=== PATIENT | female | born 1950 | race Caucasian/White ===

== ENCOUNTER 2016-11-08 18:41 | Emergency (ER) | payer BC ==
[~2016-11-08] VITALS: Ht 167.6 cm; Wt 89.4 kg
[~2016-11-08 18:41] MED LIST: ASPCH81 PO; BNC20 PO; CALCIUM 600+D+D OR; FLUO20CA35 PO; MTR600X PO; MULT-506 PO; SIMV20TA2 PO
[2016-11-08 18:49] VITALS: TEMP 37.1; Ht 167.6 cm; Wt 89.4 kg
[2016-11-08] MEDS ORDERED: LOSA1TAB38 PO (19:00)
[2016-11-08] MEDS ORDERED: MISCCAP80 PO (19:01)
[2016-11-08] MEDS ORDERED: ACETAMINOPHEN 325 MG TAB PO STA (19:15)
[2016-11-08] MEDS ORDERED: SODIUM CHLORIDE 0.9% 500ML 500 ML IV STA (19:15)
[2016-11-08] MEDS ORDERED: IBUPROFEN 200 MG TAB PO STA (19:15)
[2016-11-08 19:50] LABS: HEMATOCRIT 39.2 % (37-47); MEAN CELL VOLUME 88.3 fL (80-100); MEAN CORPUSCULAR HEMOGLOBIN 29.7 pg (25-34); MEAN CORPUSCULAR HGB CONC 33.7 g/dl (32-36); PLATELET COUNT 197 K/uL (130-400); RED BLOOD COUNT 4.44 M/uL (4.2-5.4); WHITE BLOOD COUNT 11.31 K/uL (4.8-10.8)
[2016-11-08 19:59] LABS: INR 1.1 (0.9-1.1); PARTIAL THROMBOPLASTIN RATIO 1.1; PROTHROMBIN TIME (PATIENT) 11.9 SECONDS (9.0-12.0)
[2016-11-08 20:07] LABS: BUN/CREATININE RATIO 24.2 (10-20); CALCIUM 8.4 mg/dl (8.5-10.1); CREATININE 0.76 mg/dl (0.60-1.20); POTASSIUM 3.6 mmol/L (3.5-5.1)
[2016-11-08 20:09] LABS: BASO % 0.1 %; BASO ABS # 0.01 K/uL (0-0.2); COMPLETE YES; EOS % 0.1 %; IG% 0.2 %; LYMPH % 4.1 %; LYMPH ABS # 0.46 K/uL (1.2-3.4); MONO % 1.4 %; NEUT % 94.1 %
--- NOTE | 2016-11-08 20:38 | DIAGNOSTIC IMAGING REPORT ---
CHEST 2 VIEWS ROUTINE CLINICAL HISTORY: Fever. Nausea. Evaluate for pneumonia. COMPARISON STUDY: Chest radiograph February 16, 2015 and FINDINGS: Lung volumes are at the lower limits of normal. Mild left basilar opacity is suggestive of atelectasis. There is no evidence of pneumonia. Pulmonary vascularity is normal. Cardiac size is at upper limits of normal. IMPRESSION: No acute cardiopulmonary findings. Electronically signed by: Pino Lerner M.D. 11/08/2016 8:37 PM Dictated Date/Time: 11/08/2016 8:36 PM
[2016-11-08 21:20] LABS: URINE APPEARANCE CLEAR (CLEAR); URINE BILIRUBIN NEG (NEG); URINE COLOR YELLOW; URINE NITRITE NEG (NEG); URINE SPECIFIC GRAVITY 1.022 (1.000-1.030); UROBILINOGEN NEG (NEG)
[2016-11-08 21:22] LABS: MANUAL MICROSCOPIC REQUIRED? NO; REVIEW REQ? NO
[2016-11-08 21:45] VITALS: BP 127/64; PULSE 69; O2SAT 97
[2016-11-08 22:52] LABS: LYME DISEASE AB IGG NEG (NEG)
[2016-11-08 22:54] LABS: LYME DISEASE AB IGM NEG (NEG)
--- NOTE | 2016-11-09 00:19 | EMERGENCY ROOM VISIT NOTE ---
History Report prepared by Karen: Olivia Vora Under the Supervision of: Dr. Rayo Rosales M.D. First contact with patient: 19:07 Chief Complaint: FEVER Stated Complaint: 101 FEVER,NAUSEA,HEADACHE History of Present Illness The patient is a 66 year old female who presents to the Emergency Room with complaints of constant fever of 101 beginning this morning. She states that last night she felt good. She typically eats very healthy since she is on [employer]. Last night she had a dinner alliance party and ate not how she typically does. The patient then woke up this morning and did not feel good. She went to [facility] and the smell of food made her nauseous. When the patient got home she tried to sleep but was unable to. She experienced chills and hot flashes but denies any diaphoresis. The patient is also experiencing fatigue and a headache in the front of her head that she rates as 3/10 in severity. She has had normal bowel movements today and has not taken medication. The patient denies neck pain or stiffness, vomiting, cough, congestion, abdominal pain, diarrhea, urinary symptoms, rash or recent foreign travels. She did get her flu shot this year. Source of History: patient Onset: this morning Position: other (global) Symptom Intensity: 101 Quality: other (fever) Timing: constant Associated Symptoms: + chills, + fatigue, + fevers, + headache, + nausea, No diaphoresis, No diarrhea, No neck pain, No urinary symptoms Review of Systems See HPI for pertinent positives & negatives. A total of 10 systems reviewed and were otherwise negative. Past Medical & Surgical Medical Problems: (1) High cholesterol (2) Hypertension Family History Diabetes mellitus Hypertension Social History Smoking Status: Former Smoker Alcohol Use: none Drug Use: none Marital Status: in relationship Housing Status: lives with significant other Current/Historical Medications Scheduled , 2 TABLETS OR DAILY Aspirin (Aspirin Tab-Chewable *), 1 TAB PO DAILY Fluoxetine (Prozac), 20 MG PO DAILY Losartan Potassium (Cozaar), 100 MG PO QPM Multivitamin (Multivitamin), 1 TAB PO DAILY Probiotic Product (Probiotic), 1 CAP PO QAM Simvastatin (Zocor), 20 MG PO QPM Scheduled PRN Ibuprofen (Ibuprofen), 600 MG PO Q6H PRN for Pain Allergies Coded Allergies: No Known Allergies (Unverified , 11/08/16) Physical Exam Vital Signs Date Time Temp Pulse Resp B/P Pulse Ox O2 Delivery O2 Flow Rate FiO2 11/08/16 21:45 69 16 127/64 97 11/08/16 21:00 84 16 133/95 92 11/08/16 20:00 61 16 112/97 98 Room Air 11/08/16 19:13 98 11/08/16 19:07 91 18 146/83 95 Room Air 11/08/16 18:49 37.1 105 20 147/84 97 Room Air Physical Exam Constitutional: Vital signs reviewed. Eyes: Pupils are equal round reactive to light. Conjunctiva are noninjected. ENT: Pharynx is clear without erythema or exudate. Mucous membranes are moist. Neck supple without meningeal signs. Respiratory: Clear to auscultation bilaterally. Breath sounds are equal bilaterally. Cardiovascular: Regular rate and rhythm. No rubs or gallops. GI: Soft, nondistended and nontender. Bowel sounds are present. Musculoskeletal: No peripheral edema. No CVA tenderness. Integumentary: No cyanosis. Neurological: The patient is awake and alert. No focal deficits. Psychiatric: Normal affect. Medical Decision & Procedures ER Provider Diagnostic Interpretation: X-ray results as stated below per interpretation by me and the radiologist: CHEST 2 VIEWS ROUTINE CLINICAL HISTORY: Fever. Nausea. Evaluate for pneumonia. COMPARISON STUDY: Chest radiograph February 16, 2015 and FINDINGS: Lung volumes are at the lower limits of normal. Mild left basilar opacity is suggestive of atelectasis. There is no evidence of pneumonia. Pulmonary vascularity is normal. Cardiac size is at upper limits of normal. IMPRESSION: No acute cardiopulmonary findings. Electronically signed by: Pino Lerner M.D. 11/08/2016 8:37 PM Dictated Date/Time: 11/08/2016 8:36 PM Laboratory Results 11/08/16 19:37 Red Blood Count 4.44, Mean Corpuscular Volume 88.3, Mean Corpuscular Hemoglobin 29.7, Mean Corpuscular Hemoglobin Concent 33.7, Mean Platelet Volume 11.0, Neutrophils (%) (Auto) 94.1, Lymphocytes (%) (Auto) 4.1, Monocytes (%) (Auto) 1.4, Eosinophils (%) (Auto) 0.1, Basophils (%) (Auto) 0.1, Neutrophils # (Auto) 10.65, Lymphocytes # (Auto) 0.46, Monocytes # (Auto) 0.16, Eosinophils # (Auto) 0.01, Basophils # (Auto) 0.01 11/08/16 19:37 Test 11/08/16 19:25 11/08/16 19:37 11/08/16 21:08 Influenza Type A Antigen Neg for Influ A (NEG) Influenza Type B Antigen Neg for Influ B (NEG) White Blood Count 11.31 K/uL (4.8-10.8) Red Blood Count 4.44 M/uL (4.2-5.4) Hemoglobin 13.2 g/dL (12.0-16.0) Hematocrit 39.2 % (37-47) Mean Corpuscular Volume 88.3 fL (80-100) Mean Corpuscular Hemoglobin 29.7 pg (25-34) Mean Corpuscular Hemoglobin Concent 33.7 g/dl (32-36) Platelet Count 197 K/uL (130-400) Mean Platelet Volume 11.0 fL (7.4-10.4) Neutrophils (%) (Auto) 94.1 % Lymphocytes (%) (Auto) 4.1 % Monocytes (%) (Auto) 1.4 % Eosinophils (%) (Auto) 0.1 % Basophils (%) (Auto) 0.1 % Neutrophils # (Auto) 10.65 K/uL (1.4-6.5) Lymphocytes # (Auto) 0.46 K/uL (1.2-3.4) Monocytes # (Auto) 0.16 K/uL (0.11-0.59) Eosinophils # (Auto) 0.01 K/uL (0-0.5) Basophils # (Auto) 0.01 K/uL (0-0.2) RDW Standard Deviation 45.0 fL (36.4-46.3) RDW Coefficient of Variation 13.9 % (11.5-14.5) Immature Granulocyte % (Auto) 0.2 % Immature Granulocyte # (Auto) 0.02 K/uL (0.00-0.02) Prothrombin Time 11.9 SECONDS (9.0-12.0) Prothromb Time International Ratio 1.1 (0.9-1.1) Activated Partial Thromboplast Time 28.8 SECONDS (21.0-31.0) Partial Thromboplastin Ratio 1.1 Anion Gap 10.0 mmol/L (3-11) Est Creatinine Clear Calc Drug Dose 84.2 ml/min Estimated GFR () 96.1 Estimated GFR (Non- 82.9 BUN/Creatinine Ratio 24.2 (10-20) Calcium Level 8.4 mg/dl (8.5-10.1) Lyme Disease IgG Antibody NEG (NEG) Lyme Disease IgM Antibody NEG (NEG) Urine Color YELLOW Urine Appearance CLEAR (CLEAR) Urine pH 7.0 (4.5-7.5) Urine Specific [place] 1.022 (1.000-1.030) Urine Protein NEG (NEG) Urine Glucose (UA) NEG (NEG) Urine Ketones TRACE (NEG) Urine Occult Blood NEG (NEG) Urine Nitrite NEG (NEG) Urine Bilirubin NEG (NEG) Urine Urobilinogen NEG (NEG) Urine Leukocyte Esterase NEG (NEG) Laboratory results as reviewed by me. Medications Administered Medications (Trade) Dose Ordered Sig/Julieta Route Start Time Stop Time Status Last Admin Dose Admin Sodium Chloride (Nss 500ml) 500 ml @ 999 mls/hr Q31M STAT IV 11/08/16 19:15 11/08/16 19:45 DC 11/08/16 19:37 999 MLS/HR Ibuprofen (Advil Tab) 400 mg NOW STAT PO 11/08/16 19:15 11/08/16 19:17 DC 11/08/16 19:37 400 MG Acetaminophen (Tylenol Tab) 650 mg NOW STAT PO 11/08/16 19:15 11/08/16 19:17 DC 11/08/16 19:37 650 MG ED Course 190: The patient was evaluated in room C5. A complete history and physical exam was performed. 1914: Tylenol Tab 650 mg PO, Advil Tab 400 mg PO, Sodium Chloride 500 ml @ 999 mls/hr IV. 2129: The patient is feeling better and her headache has mostly subsided. 2144: Upon reevaluation, the patient appeared to have improvement of her symptoms. I discussed tonight's findings with her. She verbalized agreement of the treatment plan. She was discharged home. Medical Decision This is a 66-year-old female presents with a fever. Differential diagnosis includes UTI, pneumonia, influenza, viral syndrome, bacteremia. I did perform a limited focused review of portions of the patient's old chart on the electronic medical record. The patient has had no recent pertinent visits to this hospital. I did evaluate the patient as noted above. She is well appearing on examination. She is presenting with a fever and a mild frontal headache. She does not have any meningeal signs. IV access was established. I did treat her with normal saline IV. She was also given Tylenol and Motrin. I did order and personally review the patient's urinalysis and chest x-ray as described above. I did order and review the patient's blood work as noted in the electronic medical record. Her white blood cell count is slightly elevated. Lyme testing is negative. Influenza testing is negative. I did reassess the patient. She is feeling better and her headache is mostly subsided. I did discuss the test results with the patient. The cause of her fever is unclear at this time but she is very well-appearing and does not require hospitalization. She was advised to follow closely with her doctor and was given return instructions. She was discharged in good condition. Impression Primary Impression: Fever of unknown origin Scribe Attestation The scribe's documentation has been prepared under my direct and personally reviewed by me in its entirety. I confirm that the note above accurately reflects all work, treatment, procedures, and medical decision making performed by me. Departure Information Dispostion Home / Self-Care Referrals Moris Landa D.O.Int.Med. (PCP) Forms HOME CARE DOCUMENTATION FORM, IMPORTANT VISIT INFORMATION Patient Instructions ED Fever Unconf Cause, My [facility] Additional Instructions You have been examined and treated today on an emergency basis only. This is not a substitute for, or an effort to provide, complete comprehensive medical care. It is impossible to recognize and treat all injuries or illnesses in a single emergency department visit. It is therefore important that you follow up closely with your physician. Call as soon as possible for an appointment. Return for worsening symptoms or if you develop joint pains, rash, chest pain, difficulty breathing, abdominal pain, vomiting, or any other concerning symptoms.
== END 2016-11-08 21:46 | disposition home or self-care (01) ==
LOC: C.EDB 18:42 → C.EDC 21:46
DX: R50.9 Fever, unspecified (principal); I10 Essential (primary) hypertension; E78.00 Pure hypercholesterolemia, unspecified; Z79.82 Long term (current) use of aspirin; Z87.891 Personal history of nicotine dependence

== ENCOUNTER → 2017-05-06 | Outpatient (CLI) | payer BC ==
[~2017-05-06] MED LIST changes: -BNC20 PO; +LOSA1TAB38 PO; +MISCCAP80 PO
[2017-05-06 11:13] LABS: ALT/SGPT 25 U/L (12-78); BLOOD UREA NITROGEN 22 mg/dl (7-18); BUN/CREATININE RATIO 26.9 (10-20); CALCIUM 8.8 mg/dl (8.5-10.1); CARBON DIOXIDE 29 mmol/L (21-32); CHLORIDE 108 mmol/L (98-107); CHOLESTEROL 185 mg/dl (0-200); CREATININE 0.83 mg/dl (0.60-1.20); GLUCOSE 80 mg/dl (70-99); POTASSIUM 4.4 mmol/L (3.5-5.1); SODIUM 141 mmol/L (136-145); TRIGLYCERIDES 114 mg/dl (0-150); VERY LOW DENSITY LIPOPROT CALC 23 mg/dl
[2017-05-06 11:16] LABS: ALKALINE PHOSPHATASE 85 U/L (45-117); AST/SGOT 25 U/L (15-37); CHOLESTEROL/HDL RATIO 6.4; HDL CHOLESTEROL 29 mg/dl; LDL CHOLESTEROL CALCULATED 133 mg/dl
== END | disposition home or self-care (01) ==
LOC: C.LABBC 06:58
PROVIDERS: ATTEND Physician Assistant
DX: E78.00 Pure hypercholesterolemia, unspecified (principal)

== ENCOUNTER → 2017-07-09 | Outpatient (CLI) | payer BC ==
--- NOTE | 2017-07-09 15:58 | MAMMOGRAPHY REPORT ---
BILATERAL DIGITAL SCREENING MAMMOGRAM TOMOSYNTHESIS WITH CAD: 07/09/2017 CLINICAL HISTORY: Routine screening. TECHNIQUE: Breast tomosynthesis in addition to standard 2D mammography was performed. Current study was also evaluated with a Computer Aided Detection (CAD) system. COMPARISON: Comparison is made to exams dated: 07/06/2015 mammogram, 07/08/2016 mammogram, 07/05/2014 m ammogram, 07/04/2013 mammogram, 07/01/2012 mammogram, and 06/30/2011 mammogram - [facility] enter. BREAST COMPOSITION: There are scattered areas of fibroglandular density in both breasts. FINDINGS: No suspicious masses, calcifications, or areas of architectural distortion are noted in ei ther breast. There has been no significant interval change compared to prior exams. Scattered bilate ral benign-appearing calcifications are again noted. Benign intramammary lymph node in the left uppe r outer quadrant is stable. IMPRESSION: ACR BI-RADS CATEGORY 2: BENIGN There is no mammographic evidence of malignancy. A 1 year screening mammogram is recommended. The pa tient will receive written notification of the results. Approximately 10% of breast cancers are not detected with mammography. A negative mammographic report should not delay biopsy if a clinically suggestive mass is present. Maddie Sunshine M.D. /:07/09/2017 15:46:38 Drive In Teller: Jesenia HERNANDEZ(Linda)(), [facility] letter sent: Normal 1/2 BI-RADS Code: ACR BI-RADS Category 2: Benign
== END | disposition home or self-care (01) ==
LOC: C.MAMM 13:21
PROVIDERS: ATTEND Obstetrics & Gynecology
DX: Z12.31 Encounter for screening mammogram for malignant neoplasm of breast (principal)

== ENCOUNTER → 2017-12-01 | Outpatient (CLI) | payer BC | END | disposition home or self-care (01) | LOC: C.LAB1850 11:20 | PROVIDERS: ATTEND Nurse Practitioner Adult Health | DX: R53.83 Other fatigue (principal) ==

== ENCOUNTER → 2017-12-09 | Outpatient (CLI) | payer BC ==
[2017-12-09 12:28] LABS: BLOOD UREA NITROGEN 24 mg/dl (7-18); CALCIUM 8.9 mg/dl (8.5-10.1); CARBON DIOXIDE 29 mmol/L (21-32); CREATININE 0.82 mg/dl (0.60-1.20); GLUCOSE 84 mg/dl (70-99); SODIUM 139 mmol/L (136-145)
== END | disposition home or self-care (01) ==
LOC: C.LAB1850 09:43
PROVIDERS: ATTEND Nurse Practitioner Adult Health
DX: I10 Essential (primary) hypertension (principal)

== ENCOUNTER 2024-02-08 06:16 | Observation (INO) ==
--- NOTE | 2024-01-06 12:50 | PAT Medication Instructions ---
Medication Instructions Date of Service January 06, 2024 Home Medications Medication Instructions Recorded losartan 100 mg tablet 100 mg PO QAM #90 tabs 06/17/23 simvastatin 40 mg tablet 40 mg PO PM #90 tabs 08/04/23 nystatin-triamcinolone 100,000 1 applic topical TID PRN Rash #1 g 11/03/23 unit/gram-0.1 % topical ointment pantoprazole 40 mg tablet,delayed 40 mg PO BID #180 tabs 01/05/24 release fluoxetine 20 mg capsule (Prozac) 20 mg PO QAM multivitamin (Daily Multi-Vitamin tablet) 1 tab PO QAM lactobacillus combination no.4 3 billion cell capsule (Probiotic) 3,000 mmu cells PO QAM losartan 100 mg tablet 100 mg PO QAM psyllium husk 3.4 gram/5.4 gram oral powder (Metamucil) 1 tbsp PO QAM simvastatin 40 mg tablet 40 mg PO PM nystatin-triamcinolone 100,000 unit/gram-0.1 % topical ointment 1 applic topical TID PRN Rash metformin 500 mg tablet 500 mg PO QAM Magnesium Zinc Vitamin D3 2 cap PO QAM glucosamine sulf dipot chlr,msm,chond 550 mg-C 30 mg-pablo 1 mg capsule (Glucosamine Chondroitin) 2 cap PO QAM pantoprazole 40 mg tablet,delayed release 40 mg PO BID STOP taking 2 weeks before surgery (or as soon as possible if surgery is within 2 weeks) glucosamine sulf dipot chlr,msm,chond 550 mg-C 30 mg-pablo 1 mg capsule (Glucosamine Chondroitin) 2 cap PO QAM STOP taking 24 hours before surgery nystatin-triamcinolone 100,000 unit/gram-0.1 % topical ointment 1 applic topical TID PRN Rash DO NOT take the morning of surgery multivitamin (Daily Multi-Vitamin tablet) 1 tab PO QAM lactobacillus combination no.4 3 billion cell capsule (Probiotic) 3,000 mmu cells PO QAM losartan 100 mg tablet 100 mg PO QAM psyllium husk 3.4 gram/5.4 gram oral powder (Metamucil) 1 tbsp PO QAM metformin 500 mg tablet 500 mg PO QAM Magnesium Zinc Vitamin D3 2 cap PO QAM Take morning of surgery With a small sip of water, OTHERWISE NOTHING TO EAT OR DRINK AFTER MIDNIGHT: fluoxetine 20 mg capsule (Prozac) 20 mg PO QAM pantoprazole 40 mg tablet,delayed release 40 mg PO BID Take evening before surgery simvastatin 40 mg tablet 40 mg PO PM pantoprazole 40 mg tablet,delayed release 40 mg PO BID Other Notes If you have any questions please call us at [phone] or [phone] or [phone] or [phone]
--- NOTE | 2024-01-13 11:59 | Anesthesiology Consultation ---
Date of Service January 13, 2024 Assessment & Plan (1) Encounter for pre-operative examination: - check BSG am DOS. - Outpatient joint assessment: Patient is currently scheduled for inpatient pathway. If re-evaluated and patient/surgeon requests outpatient pathway, patient is acceptable candidate for outpatient joint program from anesthesia standpoint pending surgeon's office assessment of pt motivation/support/completion of same day joint program preop requirements. Chart Review Chart Review: Acceptable Risk for Surgery and Patient seen in Pre Admission Testing Teaching & Discussion Pre-Anesthesia Teaching/Discussion Notes: Instructed NPO after midnight before surgery, except medications with 15 cc of water. Medication instructions provided according to the PAT guidelines. History Surgery Operation Date: 02/08/24 08:15 Proposed Procedures p Left Total Knee Arthroplasty - Micky Smith DO Height/Weight Height: 5 ft 5 in Weight: 83.4 kg Allergies Allergy/AdvReac Type Severity Reaction Status Date / Time No Known Drug Allergies Allergy Verified 12/29/23 11:04 Medications Home Medications Medication Instructions Recorded Confirmed Last Taken fluoxetine 20 mg capsule (Prozac) 20 mg PO QAM 02/07/19 12/29/23 01/13/23 multivitamin (Daily Multi-Vitamin 1 tab PO QAM 11/30/20 12/29/23 01/13/23 tablet) lactobacillus combination no.4 3 3,000 mmu cells PO QAM 12/16/21 12/29/23 01/13/23 billion cell capsule (Probiotic) losartan 100 mg tablet 100 mg PO QAM #90 tabs 06/17/23 12/29/23 Unknown psyllium husk 3.4 gram/5.4 gram 1 tbsp PO QAM 07/02/23 12/29/23 Unknown oral powder (Metamucil) simvastatin 40 mg tablet 40 mg PO PM #90 tabs 08/04/23 12/29/23 Unknown nystatin-triamcinolone 100,000 1 applic topical TID PRN Rash #1 g 11/03/23 12/29/23 Unknown unit/gram-0.1 % topical ointment metformin 500 mg tablet 500 mg PO QAM 12/04/23 12/29/23 Unknown Magnesium Zinc Vitamin D3 2 cap PO QAM 12/29/23 12/29/23 Unknown glucosamine sulf dipot 2 cap PO QAM 12/29/23 12/29/23 Unknown chlr,msm,chond 550 mg-C 30 mg-pablo 1 mg capsule (Glucosamine Chondroitin) pantoprazole 40 mg tablet,delayed 40 mg PO BID #180 tabs 01/05/24 Unknown release Past Medical History Medical History Chronic back pain mild Depression with anxiety GERD (gastroesophageal reflux disease) controlled, stable per pt Hearing deficit b/l campuzano High cholesterol History of COVID-19 (~2020) hospital test, resolved Hx of renal calculi passed on own Hypertension controlled, stable per pt Osteoarthritis of knee hx cortisol injections both knees Post-nasal drip Prediabetes on metformin TMJ syndrome clicks occasional with yawn, no locking Patient denies h/o stroke, seizures, heart attack, heart failure, blood marilyn ts/DVTs or blood transfusions. Exercise / Class Metabolic Activity III < 4 Walking/Shop/Light housework (denies chest discomfort or shortness of breath with usual activities) Past Family History Family History Mother Stroke Diabetes Hypertension FH: deafness or hearing loss Hearing loss Unknown FH: deafness or hearing loss Hypertension Other No family history of adverse response to anesthesia No family history of bleeding disorder Denies family history of Colon cancer Ovarian cancer Prostate cancer Myocardial infarction Breast cancer Past Surgical History Surgical History History of colonoscopy History of lateral meniscus repair of left knee History of selective injection of anesthetic agent around lumbar nerve root LESI History of tonsillectomy and adenoidectomy Hx of bilateral cataract extraction Past Anesthesia History No Hx of Anesthesia Complications and No Family Hx of Anesthesia Complications History of PONV No Hx of PONV and No Hx of Motion Sickness Social History Smoking Status: Former smoker Smoking cigarettes per day: 1 PPD Do You Dip or Chew Tobacco: No Smoking End Date: Quit 50 years ago Hx Alcohol Use: No Hx Substance Use: No substance use type: does not use Review of Systems Patient denies chest pain, shortness of breath, dyspnea on exertion, snoring, witnessed apneas, fever, chills, change in chronic cough associated with postnasal drip per pt, wheezing, or palpitations. Physical Exam Vital Signs Vitals BP 118/81 P 73 TEMP 98.3 SP02 96% on RA RESP 18 Physical Patient resting comfortably in chair in no acute distress, alert and oriented, responding appropriately throughout visit Full cervical extension range of motion without pain TMD 3.5 finger breadths Mallampati Score 3 Dentition: several caps/crowns and several implants, bridges; denies chipped or loose teeth Lungs: normal respiratory effort. Good air movement, clear throughout to auscultation, no adventitious breath sounds Cardiac: regular rate and rhythm, no murmurs noted Carotid arteries: negative bruit bilat Lab Results Anesthesia Preop Results Results Anesthesia Widget: WBC 7.94 K/ul (4.8-10.8) 01/13/24 Hgb 12.4 g/dl (12.0-16.0) 01/13/24 Hct 38.1 % (37.0-47.0) 01/13/24 Plt 261 K/uL (130-400) 01/13/24 Na 137 mmol/L (136-145) 01/13/24 K 4.7 mmol/L (3.5-5.1) 01/13/24 Cl 105 mmol/L (98-107) 01/13/24 CO2 27 mmol/L (21-32) 01/13/24 BUN 25 mg/dl (6-23) H 01/13/24 Creat 0.63 mg/dl (0.6-1.2) 01/13/24 Glucose Level 97 mg/dl (70-99(Fasting)) 01/13/24 PT 11.6 Seconds (9.0-12.0) 01/13/24 PTT 29 Seconds (21-31) 01/13/24 INR 1.1 (0.9-1.1) 01/13/24 HA1c 5.8 % (4.5-5.6) H 01/13/24 Blood Type B Negative 01/13/24 Antibody Screen NEGATIVE 01/13/24 Testing Electrocardiogram Date: 01/14/24 NSR with sinus arrhythmia, rate 64 bpm Left anterior fascicular block Minimal voltage criteria for LVH, may be normal variant Chest X-Ray Date: 09/14/23 No acute cardiopulmonary findings.
[~2024-02-08 06:16] MED LIST changes: -ASPCH81 PO; +BUPIVACAINE 0.25% PF 30 ML VIAL ONE; +BUPIVACAINE 0.5 % 5 MG/1 ML PF 10ML VIAL ONE; -CALCIUM 600+D+D OR; -FLUO20CA35 PO; -LOSA1TAB38 PO; -MISCCAP80 PO; -MTR600X PO; -MULT-506 PO; -SIMV20TA2 PO
--- NOTE | 2024-02-08 06:36 | History & Physical Bridge Note ---
Date of Service February 08, 2024 History & Physical Bridge Note I have examined the patient, reviewed the History & Physical and in the interval since the performance of the History & Physical I have noted the following changes of clinical significance: no changes noted
[2024-02-08] MEDS ORDERED: PHENYLEPHRINE 100MCG/ML 10ML SYR IV ONE (06:44)
[2024-02-08] MEDS ORDERED: MIDAZOLAM HCL 1 MG/ML 2ML VIAL ONE (06:44)
[2024-02-08] MEDS ORDERED: PROPOFOL IV EMULSION 10 MG/ML 20 ML VIAL IV ONE ×2 (06:44→08:37)
[2024-02-08] MEDS ORDERED: ONDANSETRON INJ 2 MG/ML 2 ML VIAL ONE (06:44)
[2024-02-08] MEDS: LR 500ML BOLUS, THEN 15ML/HR IV SCH (07:11)
[2024-02-08] MEDS: FAMOTIDINE 20 MG TAB PO SCH (07:13)
[2024-02-08] MEDS: ACETAMINOPHEN 500 MG TAB PO SCH ×2 (07:13→14:15)
[2024-02-08] MEDS: GABAPENTIN 300 MG CAP PO SCH (07:14)
[2024-02-08] MEDS: dexAMETHasone**PF** 10 MG/ML VIAL IV SCH (07:14)
[2024-02-08] MEDS: LR 60ML/HR IV SCH (07:27)
[2024-02-08] MEDS: TRANEXAMIC ACID 1,000 MG **IV Pre-op IV SCH (07:57)
[2024-02-08] MEDS: ceFAZolin 2000MG 2,000 MG/15 ML SYR IV SCH (08:04)
[2024-02-08] MEDS ORDERED: ePHEDrine sulfate 50 MG/ML AMP IV PRN (08:27)
[2024-02-08] MEDS ORDERED: PROMETHAZINE HCL 6.25 MG in SODIUM CHLORIDE 0.9% 50 ML IV PRN (08:27)
[2024-02-08] MEDS ORDERED: fentaNYL citrate PF 100 MCG/2 ML VIAL IV PRN (08:27)
[2024-02-08] MEDS ORDERED: ATROPINE SULFATE 0.1 MG/ML 10ML SYR IV PRN (08:27)
[2024-02-08] MEDS ORDERED: ONDANSETRON INJ 2 MG/ML 2 ML VIAL IV PRN ×2 (08:27→11:05)
[2024-02-08] MEDS: ORTHO JOINT ANESTHETIC ONE (08:46)
[2024-02-08] MEDS: ROPIV 0.5% 246mg, Ketorolac 30mg, EPINEPHrine 0.5mg in NSS INFIL SCH (08:46)
[2024-02-08] MEDS: TRANEXAMIC ACID 1,000 MG **IV Intra-op IV SCH (09:00)
--- NOTE | 2024-02-08 09:10 | Operative Report ---
PG Post Operative Report Pre & Post Diagnosis Operation Date: 02/08/24 08:15 Pre-Op Diagnosis: Degenerative Joint Disease Left Knee Post-Op Diagnosis: Degenerative Joint Disease Left Knee I identified the patient and participated in the time-out.: Yes Procedure Operation Date: 02/08/24 08:15 Actual Procedures p Left Total Knee Arthroplasty, Cemented(Left) - Micky Smith DO Surgeon Micky Smith DO Cut Off Saw Set Up Operator John Paul Lynn PA-C Estimated Blood Loss 30 Findings Consistent with Post-Op Diagnosis Specimens Left femoral and tibial bone Description of Procedure Implants used: I used a Marisol Persona total knee arthroplasty system with a size 6 narrow PS femur, D tibia, 28 oval patella, and a size 14 CPS polyethylene bearing. All components were cemented in place with Biomet cement. Sakina arrived [facility] for the above procedure. She was seen in the preoperative holding area and the operative extremity was identified and signed. She was given a preoperative antibiotic, TXA, a spinal anesthetic and an adductor nerve block. She was taken back to the operating room and laid on the table in supine position. She was given basic sedation. The operative knee was then prepped and draped in sterile fashion. A timeout was done, and the patient and the operative extremity was properly identified. A midline incision was made directly over the patella. Dissection was taken down to the extensor mechanism. A midvastus arthrotomy was used. The medial retinaculum was released and the fat pad was mostly excised. The knee was flexed and the ACL, PCL, and meniscus were removed. A drill was sent down the center of the femoral canal followed by an intramedullary russell. Off that russell a distal femoral cutting block was placed. 9 mm was resected off the distal femur at 5 of valgus. A posterior referencing AP sizing guide was then placed on the distal femur. The femur measured to be a size 6. 2 drill holes were placed in 3 of external rotation. A 4-in-1 cutting block was then impacted into place. Anterior, posterior, and chamfer cuts were then made. The proximal tibia was then exposed. An external tibial alignment guide was placed. A tibial cut guide was then anchored in place and the proximal tibia was then resected. The posterior aspect of the knee was then opened up and any additional meniscus fragments and osteophytes were removed. The tibia measured to be a size D. The tibial plate was then placed in the appropriate rotation and the tibia was drilled and punched. Trial components were then placed. I used a size 14 CPS polyethylene insert. The knee was brought through a full range of motion and felt to be stable. The peg holes for the femoral component were then drilled. The patella was then everted and 9 mm was resected off the posterior aspect of the patella. The patella measured to be a size 28 oval. 3 peg holes were then drilled. A trial patella was placed. The knee was once again brought through a full range of motion and felt to be stable. Trial components were then removed. The surrounding soft tissues were injected with 100 cc of an orthopedic pain control cocktail. All components were then cemented into place with Biomet cement. The final polyethylene insert was then snapped into place. Once cement was dry the tourniquet was deflated. Hemostasis was obtained. A dilute betadyne lavage was then done for 3 minutes. The joint was then irrigated with normal saline solution. The midvastus arthrotomy was then closed with #1 Vicryl suture. The skin was closed with 2-0 Vicryl, 3-0V lock suture, and shaun. A soft compressive dressing was placed. She was then transferred to a hospital bed and taken to the postanesthesia care unit in stable condition. She tolerated the procedure well. John Paul Lynn PA-C, was present for the entire procedure. He was critical for patient positioning, prepping, draping, retraction exposure, wound closure and application of sterile dressing. I attest to the content of the Intraoperative Record and any orders documented therein. Any exceptions are noted below.
--- NOTE | 2024-02-08 10:08 | XRay Report ---
LEFT KNEE 2 VIEWS History: Left total knee arthroplasty. Degenerative arthritis. Postop. FINDINGS: The patient is status post a left total knee arthroplasty. The hardware is intact. No fract ure or dislocation. Skin shaun are in place. IMPRESSION: Left total knee arthroplasty. No evidence for hardware complication. ACT 112: Negative or not required by law. Electronically signed by: Delio Armstrong M.D. 02/08/2024 10:06 AM
[2024-02-08] MEDS ORDERED: PHARMACY GLYCEMIC MGMT CONSULT PRN (11:05)
[2024-02-08] MEDS ORDERED: NALOXONE HCL 0.4 MG/1 ML VIAL/CARP IV PRN (11:05)
[2024-02-08] MEDS ORDERED: METOCLOPRAMIDE HCL INJ 5 MG/ML 2 ML VIAL IV PRN (11:05)
[2024-02-08] MEDS ORDERED: HYDROmorphone INJ 0.5 MG/0.5 ML SYR IV PRN (11:05)
[2024-02-08] MEDS ORDERED: MAGNESIUM HYDROXIDE SUSP 30 ML UDC PO PRN (11:05)
[2024-02-08] MEDS ORDERED: bisacodyL 10 MG SUPP PR PRN (11:05)
[2024-02-08] MEDS ORDERED: oxyCODONE HCL IR 5 MG TAB (IMMEDIATE RELEASE) PO PRN (11:05)
--- NOTE | 2024-02-08 11:12 | Anesthesiology Progress Note ---
Date of Service February 08, 2024 Anesthesia Post Procedure Vital Signs Vital Signs: Temp Pulse Resp BP Pulse Ox O2 Del Method O2 Flow Rate 02/08/24 10:55 36.4 C L 70 16 140/76 95 Room Air 02/08/24 10:45 36.6 C 75 13 139/73 94 Room Air 02/08/24 10:35 36.6 C 72 13 133/84 92 Room Air 02/08/24 10:25 74 17 137/77 95 Room Air 02/08/24 10:15 71 19 128/64 99 Room Air 02/08/24 10:05 55 L 20 118/61 100 Oxymask 3 02/08/24 09:55 65 18 117/70 100 Oxymask 3 02/08/24 09:45 71 16 107/75 100 Oxymask 3 02/08/24 09:37 36.4 C L 78 16 121/67 99 Oxymask 5 02/08/24 06:35 36.7 C 69 16 156/85 H 99 Room Air Transfer of Care Handoff Completed per policy Notes Mental Status: alert / awake / arousable and participated in evaluation Patient Amnestic to Procedure: Yes Nausea / Vomiting: adequately controlled Pain: adequately controlled Airway Patency, RR, SpO2: stable & adequate BP & HR: stable & adequate Hydration State: stable & adequate Neuraxial Anesthesia: was administered and sensory block is resolving Anesthetic Complications: no major complications apparent and Pt Satisfied with anesthetic care
--- NOTE | 2024-02-08 11:46 | Pharmacy Report ---
Pharmacy Glycemic Short Note 2 - Date of Service February 08, 2024 - Glycemic Short BSG Results (Last 24 hours): 02/08/24 02/08/24 06:35 11:32 POC Glucose 110 H 128 H OUTPATIENT ANTIDIABETIC REGIMEN: * metformin 500mg QAM * HbA1c 5.8% (01/13/24) ASSESSMENT: * Sakina is a 73 YOF admitted status post left total knee arthroplasty and a history of prediabetes. Pharmacy has been consulted to assist with glycemic management while inpatient. * Preoperative BSG this AM within goal range, dexamethasone 10mg IV given preoperatively, BSGs still within goal range at lunchtime, will withhold basal insulin at this time. * Correction factor added to Novolog orders, will hold carbohydrate coverage at this time. PLAN FOR INPATIENT GLYCEMIC CONTROL: * Hold outpatient oral diabetes medications * Basal insulin * hold * Bolus insulin * NovoLog per scale ACHS or Q6hrs while NPO * Goal Range: Low 120 mg/dL - High 160 mg/dL * Correction Factor: 30 mg/dL/unit * Nutritional / Prandial insulin per carb ratio of 1 unit per -- grams CHO consumed
[2024-02-08] MEDS: SODIUM CHLORIDE 0.9% 1,000 ML IV SCH (11:57)
[2024-02-08] MEDS: KETOROLAC TROMETHAMINE 15 MG/ML VIAL IV SCH (12:08)
[2024-02-08] MEDS: INSULIN ASPART PER UNIT CHARGE SC SCH (12:12)
[2024-02-08] MEDS: ceFAZolin 1000MG 1,000 MG/7.5 ML SYR IV SCH (16:27)
[2024-02-08] MEDS: SENNA 8.6 MG TAB PO SCH (20:19)
[2024-02-08] MEDS: DOCUSATE SODIUM 100 MG CAP PO SCH (20:19)
[2024-02-08] MEDS: ASPIRIN 81 MG ECTAB PO SCH (20:19)
[2024-02-08] MEDS: PANTOprazole 40 MG TAB PO SCH (20:19)
[2024-02-08] MEDS: SIMVASTATIN 40 MG TAB PO SCH (20:19)
[2024-02-08] MEDS: traMADol HCL 50 MG TABLET PO PRN (20:19)
[2024-02-09] MEDS ORDERED: metFORMIN HCL 500 MG TAB PO SCH (09:00)
[2024-02-09] MEDS: metFORMIN HCL 500 MG TAB PO SCH (09:51)
[2024-02-09] MEDS: FLUoxetine HCL 20 MG CAP PO SCH (09:53)
[2024-02-09] MEDS: LOSARTAN POTASSIUM 50 MG TAB PO SCH (09:54)
[2024-02-09] MEDS: MULTIVITAMIN TAB PO SCH (09:54)
--- NOTE | 2024-02-09 11:07 | Orthopedic Progress Note ---
Date of Service February 09, 2024 Assessment & Plan (1) Status post left knee replacement: Overall, she is doing quite well today with good pain control of the left knee. She worked with physical therapy today and was able to do ambulation and range of motion exercises within quite well. She is on aspirin for DVT prophylaxis. She can be discharged home later this morning pending formal physical therapy evaluation recommendations. She will follow-up in 2 weeks with orthopedics for postoperative management. Subjective . Sakina was seen and evaluated this morning resting comfortably in no apparent distress. She notes that her pain is well-controlled to the left knee. She notes that she has worked with physical therapy this morning and was able to ambulate quite well today. She has been up and out of bed with no significant issues. She denies any other concerns today. Review of Systems All systems reviewed & are unremarkable except as noted in HPI & below. Physical Exam . On physical examination of the left knee, dressings are clean, dry, intact. Her leg is out in full extension. She has active plantarflexion dorsiflexion of the left ankle. +2 DP and PT pulses. Less than 2-second capillary refill. Normal sensation. Neurovascular intact. Results & Data Results & Data Laboratory Results . Diagnostic Findings . Postoperative x-rays of the left knee show prosthesis to be in anatomical alignment with no signs of fracture complication or loosening. PG Care Time/CCT Total # of Minutes Spent Total Time Spent with Patient: Total time spent is greater than 50% in coordination of care (as documented) at patient's floor/unit and/or counseling patient: Coding Level of Care Code 58819 Post Operative Follow-Up Diagnoses Status post left knee replacement Z96.652
--- NOTE | 2024-02-09 11:09 | Discharge Summary ---
Date of Service February 09, 2024 Principal Diagnosis Same as "Discharge Diagnosis" noted below under Discharge Instructions. Discharge Exam . On physical examination of the left knee, dressings are clean, dry, intact. Her leg is out in full extension. She has active plantarflexion dorsiflexion of the left ankle. +2 DP and PT pulses. Less than 2-second capillary refill. Normal sensation. Neurovascular intact. Discharge Data Procedures Performed Operation Date: 02/08/24 08:15 Actual Procedures p Left Total Knee Arthroplasty, Cemented(Left) - Micky Smith DO Ordered Studies 02/08/24 05:00 US - OR guided needle placemen Routine Hospital Course (1) Status post left knee replacement: On February 08, 2024 Skaina arrived at [facility] and underwent a left total knee arthroplasty performed by Dr. Smith with no complications. She had a spinal anesthetic. Postoperatively, she was started on aspirin for DVT prophylaxis and transferred to the general orthopedic floor in stable condition. Her hospital course was uneventful. On postoperative day #1, her vital signs were stable and her pain was well-controlled. She participated well with physical therapy working on ambulation and range of motion exercises. She was then discharged home in stable condition. She will follow-up with orthopedics in 2 weeks for postoperative management. PG Care Time/CCT Total # of Minutes Spent Total Time Spent with Patient: Total time spent is greater than 50% in coordination of care (as documented) at patient's floor/unit and/or counseling patient: Discharge Plan Discharge Items Patient Disposition: Home - Home Health Services Reason For Visit: DJD Knee left Discharge Diagnosis: Same Activity: Per Instructions section Non-emergency contact: Surgeon Call non-emergency contact if: your temperature is above 101.5, your wound has increased redness and your wound has increased drainage Follow-up/Referrals: Ankit Mancilla III, CRNP [Primary Care Provider] - Diet: Regular Addtl Attending Provider Instructions: Activity and Therapy Recommendations: * If you are using [facility] then therapy will be provided at your home until they feel you have accomplished all of your goals. * If you are using [facility] then Physical Therapy will be provided until they feel you are ready to start Outpatient Physical Therapy. * If you are not using home therapy then Outpatient Physical Therapy should start about 3-5 days from your day of surgery. Therapy will last about 6-10 weeks * It is important not to put a pillow under your knee when you are relaxing or sleeping. It is just as important to make sure you are getting your knee perfectly straight as it is to regain your knee bend. * You were shown a series of exercises in the hospital. Do these exercises three times each day including the exercises you were shown in physical therapy. * Get up and walk several times each day. For the first four weeks, try not to stand or walk for more than one hour at a time. If you do stand or walk for more than one hour, you will not hurt anything, but your leg will likely swell. * As you feel comfortable, you may change from the walker or crutches to a cane and then to independent walking. Medications: * Narcotic You will likely be sent home from the hospital with a prescription for the narcotic pain medication that worked best throughout your stay. * Cefadroxil -take the antibiotic twice a day for 10 days to help prevent in fection. * Aspirin Most patients will be required to take Aspirin 81mg twice a day for 6 weeks after surgery. This is obtained [id number] and a prescription is not necessary. * Other medications may be prescribed for specific circumstances. If you have any questions, please call the office at . * Resume previous home medications unless otherwise instructed TEDs/Elastic Stockings: The white elastic stockings help limit swelling and prevent blood clots from forming in your legs.~ The more you wear them, the more they work. Wear them for six weeks. Dressing Care: The dressing can be changed after physical therapy on postop day #1. Daily dry dressing changes for a few days, especially if the incision is still draining some. If the incision is not draining then you may leave the shaun open to air. If there is a little bit of drainage or if the shaun are getting stuck on your clothing then cover the incision with a dry dressing. The shaun will be removed at your 2 week follow-up appointment. Showering: You may shower 5 days from the day of surgery as long as the incision is no longer draining. You may shower with the shaun exposed. Let soapy water run over the shaun and pat them dry. Do not scrub or soak the incision. Things To Watch For: * Drainage from the incision site that occurs more than one week after your surgery. * Increased redness at the incision site. * Fever above 102 degrees Fahrenheit. * Unusual chest pain or shortness of breath. * Call [facility] at with any of the above problems Follow-Up Visit: Follow-up with Dr. Smith's PA (Micky Andrade) 2-3 weeks after your day of surgery. He will remove your shaun and answer any questions. If you have any additional questions or concerns, Dr Smith is usually in the office at the same time and will be available An appointment was probably scheduled when you signed-up for surgery in the office. If you have any questions call Office Instructions: More detailed instructions as well as Frequently Asked Questions were provided in a folder by our office when you signed-up for surgery. Please review these instructions when you get home. If you have any further questions or concerns, please feel free to call the office at [phone] Pending Studies at Discharge: No Stand-Alone Forms: [facility], Smoking Cessation Medications and DC Order Prescriptions: New aspirin 81 mg Tablet,Delayed Release (Dr/Ec) 81 mg PO BID 42 Days Qty: 0 0RF tramadol 50 mg Tablet 50 mg PO Q6H PRN (Reason: pain) Qty: 30 0RF cefadroxil 500 mg capsule 500 mg PO BID 10 Days Qty: 20 0RF Continued losartan 100 mg tablet 100 mg PO QAM Qty: 90 3RF simvastatin 40 mg tablet 40 mg PO PM Qty: 90 3RF nystatin-triamcinolone 100,000-0.1 unit/gram-% ointment 1 applic topical TID PRN (Reason: Rash) Qty: 1 1RF Rx Instructions: Apply sparingly to affected areas 3 times daily as needed pantoprazole 40 mg tablet,delayed release (DR/EC) 40 mg PO BID Qty: 180 3RF Rx Instructions: 40 mg orally twice a day; Probiotic 3 billion cell capsule 3,000 mmu cells PO QAM Rx Instructions: administer with a meal Metamucil 3.4 gram/5.4 gram powder 1 tbsp PO QAM Rx Instructions: mix into at least 4 oz water or juice before administering multivitamin [Daily Multi-Vitamin] Tablet 1 tab PO QAM metformin 500 mg tablet 500 mg PO QAM fluoxetine [Prozac] 20 mg Capsule 20 mg PO QAM Glucosamine Chondroitin 550-30-1 mg Capsule 2 cap PO QAM Magnesium Zinc Vitamin D3 2 unit 2 cap PO QAM Admission Data Admit Date/Time: 02/08/24 09:47 Attending Provider: Micky Smith Admit Provider: Micky Smith Primary Care Provider: Ankit Mancilla III Other Providers: [facility],Home [facility] Other Interventions: Discharge Summary Assessment (RN) Last Done: 02/09/24 10:18
== END 2024-02-09 11:11 | disposition home health service (06) ==
LOC: ASU 06:16 → 3W 06:16
DX: Z79.899 Other long term (current) drug therapy; M17.12 Unilateral primary osteoarthritis, left knee; K21.9 Gastro-esophageal reflux disease without esophagitis; M25.762 Osteophyte, left knee; M65.9 Synovitis and tenosynovitis, unspecified; E78.5 Hyperlipidemia, unspecified; Z79.84 Long term (current) use of oral hypoglycemic drugs; Z87.891 Personal history of nicotine dependence; I10 Essential (primary) hypertension; R09.82 Postnasal drip; R73.03 Prediabetes